=== PATIENT | male | born 1995 | race Caucasian/White ===

== ENCOUNTER 2016-10-30 20:01 | Emergency (ER) | payer OTHER | END 2016-10-30 20:35 | disposition home or self-care (01) | LOC: ER 20:01 | DX: S80.862A Insect bite (nonvenomous), left lower leg, initial encounter (principal); L03.116 Cellulitis of left lower limb; W57.XXXA Bitten or stung by nonvenomous insect and other nonvenomous arthropods, initial encounter | CPT/HCPCS: 96372; 99282-25 ==